=== PATIENT | male | born 1980 | race Caucasian/White ===

== ENCOUNTER 2019-02-16 07:08 | Day surgery (SDC) | payer SELFPAY ==
[2019-02-16 07:28] VITALS: BP 123/71; PULSE 62; RESP 16; TEMP 36.2; O2SAT 100; BMI 28.9
[2019-02-16] MEDS: Lactated Ringers 1,000 ML 100 ML IV (07:36)
[2019-02-16] MEDS: Cefazolin 2 GM in 0.9% Normal Saline 100 ML IV (08:23)
--- NOTE | 2019-02-16 09:23 | PCM.DC.URO ---
Discharge Diet: Light diet - advance as tolerated Discharge Activity: May not drive while taking narcotic pain medications. Call your doctor if your incision/area has: Sudden Increased Bleeding Call your doctor if you observe: Fever of 101 or Higher Suture Line Care: Avoid Pulling/Pushing, Avoid Pinching/Bending Allergies/Adverse Reactions: Allergies No Known Allergies Allergy (Verified 02/16/19 07:22) Medications to take at Discharge Apixaban [Eliquis] 5 mg PO BID 02/07/19 Calcium Carbonate [Calcium] 600 mg PO DAILY 02/07/19 Multivitamin [Daily Multiple Vitamin] 1 ea PO DAILY 02/07/19 Hydrocodone/Acetaminophen [[place] 5-325 Tablet] 1 ea PO Q4H PRN PRN 5 Days #14 tab 02/16/19 The following prescriptions were given: Hydrocodone/Acetaminophen [[place] 5-325 Tablet] 1 ea PO Q4H PRN PRN 5 Days #14 tab PRN Reason: Pain Score 1-10/10 Prescription Printed Primary Care Physician: Jason Brady MD [Primary Care Provider] - Test Results: Test results from this visit will be discussed in further detail at your follow-up appointment, if applicable. Please Follow Up With: Taurus Freeman MD When: in 2 weeks, please call to make an appointment.
--- NOTE | 2019-02-16 09:25 | PCM.OPRPT ---
Report of Operation Date of Procedure: 02/16/19 Pre-Operative Diagnosis: Elective sterilization undescended right testicle Post-Operative Diagnosis: Bilateral vasectomy and right abdominal orchiopexy Surgery/Procedure Performed:: Bilateral vasectomy and right abdominal orchiopexy Description of Surgical Findings:: 38-year-old male was found to have an undescended testicle on the right side fairly high up in the inguinal canal he also desires to have vasectomy he is has children and he and his do not desire any more children he understands vasectomy is a permanent procedure. He also has an undescended right testicle today working to proceed with a right orchiopexy. He understands that the testicle will not reach the scrotum or looks unviable went on to perform an orchiectomy. 38-year-old male taken back to the operating room after smooth induction of anesthesia he was placed supine on the table he was then shaved prepped and draped from the lower abdomen and up all the hair off the penis and scrotum once we draped the patient I palpated the right inguinal area could palpate the testicle within the inguinal canal on the right side high up in the left lower abdomen. I then made a 3 cm incision over the area of where the testicle was palpable dissected down until I got into the testicle testicle was then delivered in the inguinal incision I then opened up the tunica of the testicle I then circumferentially dissected the attachments of the testicle to the cord to release the testicle from the spermatic cord and to release it from its inguinal canal once the testicle was completely released sparing of the blood vessel I did identified the vas deferens on that side and the segment was cut out and burned to perform a vasectomy way then pulled in the testicle the blood supply did reach to the scrotum I then went to the left side isolated the left vas deferens but it up under the skin infiltrated the skin with lidocaine and took down with the vas clamp grabbed the vas pulled up the vas and cut out a segment burn to 2 ends and then dunked advanced back down and then closed this with a stitch we then made an incision and the right hemiscrotum created the dartos pouch I do not use the Luciana to navigate up through from the dartos pouch into the inguinal area I grab the end of the testicle very carefully pulled it through the canal that was was made from the inguinal area down to the scrotum I then used a stitch to permanently keep the testicle in the scrotum I then closed the scrotum over the testicle within the duct dartos pouch the testicle was atrophic compared to the left side. The left testicle was normal in size the right testicle was healthy looking but atrophic in size because of undescended we were able to successfully then bring it down into the scrotum I closed the scrotal skin and the scrotal incision and then closed the inguinal incision in 2 layers dressings and flaps were placed patient anesthetic was reversed and he understands he needs to use control drop off a sample in 6 weeks and I will see him in 2 weeks for checkup. Type of Anesthesia:: General - Admit VTE Documentation VTE Present on Admission: No VTE Mechan Device Prophylaxis: SCD's
[2019-02-16 09:30] VITALS: BP 114/73; BP 123/71; PULSE 58; RESP 16; TEMP 36.1; O2SAT 94
[2019-02-16 09:45] VITALS: BP 114/78; BP 123/71; PULSE 59; RESP 16; O2SAT 92
[2019-02-16 10:01] VITALS: BP 109/67; BP 123/71; PULSE 56; RESP 16; O2SAT 96
[2019-02-16 10:06] VITALS: BP 106/73; BP 123/71; PULSE 66; RESP 16; TEMP 36.1; O2SAT 99
[2019-02-16 11:17] VITALS: BP 107/70; BP 123/71; PULSE 64; RESP 16; TEMP 36.3; O2SAT 95
== END 2019-02-16 11:21 | disposition home or self-care (01) ==
LOC: SDC 07:16 → AC 07:16
PROVIDERS: Family Provider Family Medicine; PCP Family Medicine; Referring Provider Urology; Visit Provider Urology
PROC: (CPT 54650; principal; 2019-02-16 08:40)
DX: Q53.112 Unilateral inguinal testis (principal); Z30.2 Encounter for sterilization; D68.51 Activated protein C resistance; Z86.718 Personal history of other venous thrombosis and embolism; Z79.01 Long term (current) use of anticoagulants
CPT/HCPCS: 00920; 54650; 55250; J7120; J2405

== ENCOUNTER 2022-01-27 19:46 | Inpatient (IN) | payer OTHER, SELFPAY ==
[2022-01-27] VITALS (9 sets, daily range): BP systolic 0–133; BP diastolic 0–87; PULSE 0–78; RESP 0–18; TEMP -17.7–37.2; O2SAT 0–98; BMI 30.7; BMI 30.6
--- NOTE | 2022-01-27 19:44 | EX.ED.GUMALE ---
HPI History of Present Illness Chief Complaint: Flank Pain Detail of Chief Complaint: Patient had an outpatient CAT scan showing a kidney stone. He will be seen Narrative Narrative: Patient with urologist. No ER physician bill. To be taken to the operating room due to a kidney stone. PFSH PFSH Home Medications apixaban 5 mg tablet 5 mg PO BID 02/07/19 [History Last Taken Unknown] calcium carbonate 600 mg calcium (1,500 mg) tablet 600 mg PO DAILY 02/07/19 [History Last Taken Unknown] multivitamin 1 ea PO DAILY 02/07/19 [History Last Taken Unknown] Allergy/AdvReac Type Severity Reaction Status Date / Time No Known Allergies Allergy Verified 01/27/22 18:46 Social History Smoking Status: Never smoker EXAM Physical Exam Const Vital Signs: 01/27/22 18:46 Temperature 97.2 F L Temperature Source Temporal Pulse Rate 78 Respiratory Rate 14 Blood Pressure 133/87 H Blood Pressure Mean 102 Pulse Ox 97 Oxygen Delivery Method Room Air MDM MDM MDM Narrative Medical decision making narrative: 41-year-old with a kidney stone. To be seen directly by the urologist. No ER physician Bill. Discharge Plan Triage Chief Complaint: Flank Pain Dx/Rx/DC Orders Prescriptions: No Action apixaban 5 MG tablet 5 mg PO BID multivitamin 1 EACH tablet 1 ea PO DAILY calcium carbonate 600 MG tablet 600 mg PO DAILY Primary Care Provider: Jason Brady Referrals: Jason Brady MD [Primary Care Provider] -
--- NOTE | 2022-01-27 19:44 | ED.RN ---
DR ALONSO CALLED AND STATES PATIENT IS JUST TO BE PREPED FOR SURGERY AND TAKEN TO OR. PT DOES NOT NEED SEEN BY ED PHYSICIAN HE IS A SURGICAL OUTPATIENT. ED STAFF WILL PLACE AN IV AND PREP FOR SURGERY PER POLICY.
--- NOTE | 2022-01-27 20:45 | PCM.HP.STD ---
HPI - General General Date of Service: 01/27/22 Chief Complaint: Right obstructing ureteral calculi possible infection HPI Narrative SHU MAURER, is a 41 M who presents with severe renal colic nausea vomiting from obstructing stone 6 mm in size in the distal right ureter family reports fevers and chills not feeling well has been having nausea and vomiting all day long eventually he came into the emergency room for intervention as recommended when she called me for advice. [facility] Medical History Kidney stone Medical History no medical history Home Medications apixaban 5 mg tablet 5 mg PO BID 02/07/19 [History Last Taken Unknown] calcium carbonate 600 mg calcium (1,500 mg) tablet 600 mg PO DAILY 02/07/19 [History Last Taken Unknown] multivitamin 1 ea PO DAILY 02/07/19 [History Last Taken Unknown] ciprofloxacin HCl 500 mg tablet (Cipro) 500 mg PO BID #14 tabs 01/27/22 [Rx Last Taken Unknown] oxycodone-acetaminophen 5 mg-325 mg tablet 1 tab PO Q6H PRN pain 7 days #14 tabs 01/27/22 [Rx Last Taken Unknown] tamsulosin 0.4 mg capsule (Flomax) 0.4 mg PO DAILY #14 caps 01/27/22 [Rx Last Taken Unknown] Allergy/AdvReac Type Severity Reaction Status Date / Time No Known Allergies Allergy Verified 01/27/22 18:46 Family History Other Kidney stone Social History Smoking Status: Never smoker ROS Gastrointestinal Gastrointestinal: Reports abdominal pain, nausea and vomiting Genitourinary Genitourinary: Reports hematuria Musculoskeletal Musculoskeletal: Reports back pain Vital Signs Vital Signs Vital Signs: 01/27/22 18:46 01/27/22 19:57 01/27/22 20:14 Temperature 97.2 F L 98.9 F 0 F L Temperature Source Temporal Temporal Oral Pulse Rate 78 78 0 L Respiratory Rate 14 16 0 L Blood Pressure 133/87 H 128/78 H 0/0 L Blood Pressure Mean 102 94 Blood Pressure Source Monitor Pulse Ox 97 98 0 Oxygen Delivery Method Room Air Room Air Weight Weight: 94.4 kg Body Mass Index (BMI) 30.7 Physical Exam Const alert and oriented x3 HEENT normocephalic and head/scalp atraumatic Eyes PERRL Neck nuchal rigidity, no lymphadenopathy, supple, no JVD, thyroid normal, nodes and no carotid bruits Lymph Lymphatic: no lymphadenopathy noted, no lymphedema noted, lymphedema, lymphadenopathy and other Resp normal respiratory effort, normal air movement and clear to auscultation bilaterally Cardio regular rate, regular rhythm, S1 normal heart sound, S2 normal heart sound, no murmurs, no rub, no gallops and peripheral pulses 2+ throughout GI normal to inspection, nondistended, normoactive bowel sounds, soft to palpation, non-tender and non-distended Extremity normal capillary refill, no clubbing, cyanosis or edema and no calf tenderness Skin General Skin Exam: no breakdown Lesions: no lesions Rashes: no rashes Neuro CN's II-XII intact bilaterally, no focal motor deficits, no sensory deficits noted and deep tendon reflexes 2+ bilaterally Psych thought process normal and cooperative Appearance: appropriate Results Outside CT scan reviewed Assessment & Plan Assessment/Plan (1) Kidney stone: PLAN: Presents with obstructing stone in the distal right ureter nausea vomiting plan for cystoscopy stent placement start antibiotics. PLAN: Plan Plan to go to the operating room for cystoscopy and right stent placement
--- NOTE | 2022-01-27 20:47 | DCINST_ITS ---
Discharge Instructions Diet Discharge Diet: No restrictions, Light diet - advance as tolerated and Soft diet Activity Discharge Activity: Return to Normal Activity Dressing / Incision Call your doctor if you observe: Fever of 101 or Higher Follow Up Care Please Follow Up With: Taurus Freeman MD When: Call office to get set up for surgery to laser stone. Test Results: Test results from this visit will be discussed in further detail at your follow- up appointment, if applicable. Discharge Plan Admission Primary Reason for Your Visit: STENT PLACEMENT FOR OBSTRUCTING STONE Attending Provider: Taurus Freeman Primary Care Provider: Jsaon Brady Instructions Patient Instructions: Having a Ureteral Stent, ED Kidney Stone w/ Colic Discharge Orders/Prescriptions Prescriptions: New ciprofloxacin HCl [Cipro] 500 mg tablet 500 mg PO BID Qty: 14 0RF oxycodone-acetaminophen 5-325 mg tablet 1 tab PO Q6H PRN (Reason: pain) 7 Days Qty: 14 0RF tamsulosin [Flomax] 0.4 mg capsule 0.4 mg PO DAILY Qty: 14 0RF Continued apixaban 5 MG tablet 5 mg PO BID multivitamin 1 EACH tablet 1 ea PO DAILY calcium carbonate 600 MG tablet 600 mg PO DAILY Referrals / Follow Up: Taurus Freeman MD [Med Staff - Active Staff] - Jason Brady MD [Primary Care Provider] - Disposition Disposition (needs filled in before D/C Order can be placed): Home, Self Care
--- NOTE | 2022-01-27 20:47 | PCM.OPRPT ---
Report of Operation Date of Procedure: 01/27/22 Pre-Operative Diagnosis: Obstructing right ureteral calculi Post-Operative Diagnosis: The same Surgery/Procedure Performed:: Cystoscopy right retrograde pyelogram and right stent placement Description of Surgical Findings:: Patient is taken back to the operating room at the smooth duction of general anesthesia, he presented to the emergency room with severe right renal colic he had called me earlier today for advice because he was having severe pain nausea vomiting I spoke to his recommended the bring him to [facility] emergency room we will take him to the surgery today. Explained to the patient and his that jasen we discussed a place a stent to unblock the kidney hopefully we alleviate the pain by doing this and clear out any infection with his chills and fevers at home once concerning that may have an infection we will bring him in for antibiotics and will place a stent jasen Patient was taken back to the operating room at a smooth induction of a MAC local anesthesia he was placed in dorsolithotomy position. The penis and testicles were prepped and draped in usual sterile fashion, on examination he does have an atrophic right testicle prior orchiopexy pexied was done on this atrophic testicle. Penis is normal testicles otherwise unremarkable no masses. The penis and testicles were prepped and draped in usual sterile fashion went into through the urethra with a 21 Uzbek rigid cystourethroscope the entire length the urethra was normal no scar tissues or strictures along the course of the ureter I then identified the left and right ureteral orifice the right ureter orifice seemed inflamed and swollen I used a Pollick catheter and a Glidewire to engage the orifice was able to get into the wire into the orifice and they could feel it hit the stone and then I put the wire past the stone immediately got E flux of purulent looking foul urine brownish dark urine looked infected, at this point Pollick catheter was placed little bit of contrast was performed to do a retrograde pyelogram to confirm location and then we advanced a wire up to the kidney and then over the wire I placed a stent 6 Uzbek by 26 cm stent there is drained all of the infection of the right kidney and should hopefully alleviate in his obstruction and pain and want to continue with antibiotics for a week and explained to the family the ring and back to surgery to laser the stone. Patient anesthetic was reversed he is taken back to the PACU in good condition we will keep him overnight for hydration observation admission to the hospital for this infection. Surgeon: Taurus Freeman Type of Anesthesia: General Drains: stent right side Admit VTE Documentation VTE Present on Admission: No VTE Mechan Device Prophylaxis: SCD's VTE Pharm Prophylaxis ordered?: No
[2022-01-27] MEDS: 0.9% Normal Saline 1,000 ML 150 ML IV (22:08)
[2022-01-27] MEDS: Ciprofloxacin 400 MG/200 ML BAG 200 MG IV (22:08)
[2022-01-27] MEDS: APIXABAN 5 MG TABLET PO (22:09)
[2022-01-27] MEDS: Docusate Sodium 100 MG Capsule PO (22:09)
[2022-01-28 03:30] VITALS: BP 115/78; PULSE 78; RESP 15; TEMP 36.9; O2SAT 98
[2022-01-28] MEDS: 0.9% Normal Saline 1,000 ML 150 ML IV (04:41)
[2022-01-28 07:40] VITALS: BP 117/83; PULSE 74; RESP 18; TEMP 36.2; O2SAT 94
--- NOTE | 2022-01-28 07:44 | DS.PCM_ITS ---
Providers Date of Admission: 01/27/22 Primary Care Physician: Dr. Jason Brady MD Reason For Visit: FLANK, CYSTO Diagnosis Discharge Diagnosis (1) Kidney stone: Status: Acute Code(s): N20.0 - Calculus of kidney Plan: Presents with obstructing stone in the distal right ureter nausea vomiting plan for cystoscopy stent placement start antibiotics. Plan Plan to go to the operating room for cystoscopy and right stent placement Medications at Discharge Home Medications apixaban 5 mg tablet 5 mg PO BID DVT/factor V 02/07/19 multivitamin 1 ea PO DAILY Check with primary doctor 02/07/19 ciprofloxacin HCl 500 mg tablet (Cipro) 500 mg PO BID #14 tabs 01/27/22 oxycodone-acetaminophen 5 mg-325 mg tablet 1 tab PO Q6H PRN pain 7 days #14 tabs 01/27/22 tamsulosin 0.4 mg capsule (Flomax) 0.4 mg PO DAILY #14 caps 01/27/22 Hospital Course Summary of Care Provided Hospital Course: Patient was admitted for an obstructing stone and infection he underwent cystoscopy and stent placement in the next morning he felt much better no more fevers or chills no more nausea or vomiting he will go home today with ant ibiotics and was set up for outpatient ureteroscopy and laser of stone. Physical Exam Const alert and oriented x3 General Appearance: cooperative HEENT normocephalic, head/scalp atraumatic, EAC's normal and TM's normal bilaterally Eyes PERRL and EOMs intact bilaterally Pupil: sluggish Neck no lymphadenopathy, supple and no JVD General: trachea midline Lymph Lymphatic: no lymphadenopathy noted, lymphedema and lymphadenopathy Resp normal respiratory effort, normal air movement and clear to auscultation bilaterally Cardio regular rate, regular rhythm and peripheral pulses 2+ throughout GI soft to palpation, non-tender and non-distended Extremity normal capillary refill and no clubbing, cyanosis or edema General Extremity: no tenderness to palpation of joints or extremities Skin no rashes or lesions noted General Skin Exam: turgor normal Lesions: no lesions Rashes: no rashes Neuro CN's II-XII intact bilaterally Speech: speech normal Motor Exam: strength 5/5 throughout; Negative for general weakness Psych thought process normal, cooperative and affect normal Appearance: appropriate Weight / BMI Weight Weight: 93.7 kg Body Mass Index (BMI) 30.6 D/C Instructions Discharge Diet: No restrictions, Light diet - advance as tolerated and Soft diet Call your doctor if you observe: Fever of 101 or Higher Please Follow Up With: Taurus Freeman MD When: Call office to get set up for surgery to laser stone. Meaningful Use Info Meaningful Use Diagnoses (Choose all that apply): None applicable Discharge Plan Admission Admit Date/Time: 01/27/22 20:32 Primary Reason for Your Visit: STENT PLACEMENT FOR OBSTRUCTING STONE Attending Provider: Taurus Freeman Primary Care Provider: Jason Brady Instructions Patient Instructions: Having a Ureteral Stent, ED Kidney Stone w/ Colic Discharge Orders/Prescriptions Prescriptions: New ciprofloxacin HCl [Cipro] 500 mg tablet 500 mg PO BID Qty: 14 0RF oxycodone-acetaminophen 5-325 mg tablet 1 tab PO Q6H PRN (Reason: pain) 7 Days Qty: 14 0RF tamsulosin [Flomax] 0.4 mg capsule 0.4 mg PO DAILY Qty: 14 0RF Continued apixaban 5 MG tablet 5 mg PO BID multivitamin 1 EACH tablet 1 ea PO DAILY Referrals / Follow Up: Taurus Freeman MD [Med Staff - Active Staff] - Jason Brady MD [Primary Care Provider] - Disposition Discharge Orders: Discharge Patient (Routine); Ordered 01/28/22 Ordered By: Dr. Taurus Freeman
[2022-01-28] MEDS: APIXABAN 5 MG TABLET PO (09:13)
[2022-01-28] MEDS: Ciprofloxacin 400 MG/200 ML BAG 200 MG IV (09:13)
[2022-01-28] MEDS: Docusate Sodium 100 MG Capsule PO (09:13)
--- NOTE | 2022-01-28 10:00 | CASEMGMT ---
RN KATERIN Face to Face with patient for initial transition planning/care coordination assessment. RN CM introduced self and role at [facility]. Patient lying in bed, alert and oriented, bedside. Patient willing to participate in assessment and is able to answer all questions appropriately. Care providers, pharmacy, and demographics verified. Patient wishes to discharge home, denies need for home health at this time. Patient states he has no further needs or concerns at this time. CM to follow for discharge planning needs that may arise. PCP: Jose Antonio Specialists: none Preferred Pharmacy: [facility] retail at discharge Insurance: [employer] Prescription Benefit: none Living Will/HPOA: none LNOK: Living Arrangements: Patient lives with in a 2 story home. Patient states he is independent and able to ambulate stairs. Transportation: driving services DME/HHC: Patient states he has crutches at home. No previous HHC. Disposition Plan: Patient to discharge home with family support and follow-up plans in place. Leighann ALVAREZ, RN, CM
--- NOTE | 2022-01-28 10:04 | PHA.DC.MR ---
Pharmacy Service has performed discharge medication reconciliation for this patient. Note: Unable to give patient education d/t Jacquie being down Home Medications apixaban 5 mg tablet 5 mg PO BID DVT/factor V 02/07/19 multivitamin 1 ea PO DAILY Check with primary doctor 02/07/19 ciprofloxacin HCl 500 mg tablet (Cipro) 500 mg PO BID #14 tabs 01/27/22 oxycodone-acetaminophen 5 mg-325 mg tablet 1 tab PO Q6H PRN pain 7 days #14 tabs 01/27/22 tamsulosin 0.4 mg capsule (Flomax) 0.4 mg PO DAILY #14 caps 01/27/22 The patient's discharge medication list was reviewed for discrepancies and discrepancies were resolved.
[2022-01-28 11:07] VITALS: BP 125/81; PULSE 89; RESP 18; TEMP 36.7; O2SAT 95
== END 2022-01-28 12:39 | disposition home or self-care (01) | DRG 661 ==
LOC: ED 19:53 → SDC 20:09 → AC 20:10 → MS3 21:10 → SDC 21:10 → MS3 21:14
PROVIDERS: Admitting Provider Urology; Emergency Provider Emergency Medicine; PCP Family Medicine; Visit Provider Urology
PROC: 0T768DZ Dilation of Right Ureter with Intraluminal Device, Via Natural or Artificial Opening Endoscopic (ICD-10-PCS; principal; 2022-01-27 20:15)
DX: N13.2 Hydronephrosis with renal and ureteral calculous obstruction (principal); Z79.01 Long term (current) use of anticoagulants
CPT/HCPCS: 99284; J7030; A4216; C1769; C2617; J0744; J2405